=== PATIENT | female | born 1955 | race Caucasian/White ===

== ENCOUNTER → 2020-04-01 | Emergency (ER) | payer OTHER ==
[~2020-04-01] VITALS: Ht 162.6 cm; Wt 68.0 kg
[~2020-04-01] MED LIST: ALCO1PAD XX; AMLO5TAB15 PO; INSU100I4 SC; INSU31MI32 XX; LOSA25TA38 PO; PRAV20TA3 PO; SITA100T7 PO; TRAZ-184 PO
[2020-04-01 23:37] VITALS: BP 162/87
== END | disposition home or self-care (01) ==
LOC: ER 19:29
DX: H60.92 Unspecified otitis externa, left ear (principal); H66.92 Otitis media, unspecified, left ear; F41.9 Anxiety disorder, unspecified

== ENCOUNTER 2023-12-06 00:22 | Inpatient (IN) | payer OTHER ==
[~2023-12-06] VITALS: Ht 175.3 cm; Wt 68.4 kg
[2023-12-06] VITALS (8 sets, daily range): BP systolic 90–125; BP diastolic 52–75; PULSE 68–149; RESP 12–18; TEMP 97.3–98.7; O2SAT 93–98
[~2023-12-06 00:22] MED LIST changes: +AMLO1TAB22 PO; -AMLO5TAB15 PO; +LOSA25TA15 PO; -LOSA25TA38 PO
[2023-12-06] MEDS ORDERED: ONDANSETRON HCL 4 MG/2 ML VIAL IV PRN (03:00)
[2023-12-06] MEDS ORDERED: ACETAMINOPHEN 325 MG TAB PO PRN (03:00)
[2023-12-06] MEDS ORDERED: MELATONIN 5 MG TAB PO PRN (03:00)
[2023-12-06] MEDS ORDERED: DEXTROSE (50%) 50ML SYRG IV PRN (03:00)
[2023-12-06] MEDS ORDERED: hydrALAZINE HCL 10 MG TAB PO PRN (03:00)
[2023-12-06] MEDS: SODIUM CHLORIDE 0.9% 1,000 ML IV ONE (04:21)
[2023-12-06 05:55] LABS: Basophils # (auto) 0 10 ^3/uL (0-0.2); Basophils % (auto) 0.5 % (0.0-2.0); Eosinophils # (auto) 0.1 10 ^3/uL (0-0.8); Eosinophils % (auto) 2.5 % (0.0-7.0); Hematocrit 35.1 % (36.0-46.0); Lymphocytes # (auto) 1.3 10 ^3/uL (0.4-5.4); Lymphocytes % (auto) 27.3 % (10.0-50.0); Mean Corpuscular Hemoglobin 27.6 pg (28.0-32.0); Mean Corpuscular Hgb Conc. 34.4 g/dL (32.0-36.0); Mean Corpuscular Volume 80.4 fL (80.0-100.0); Monocytes # (auto) 0.5 10 ^3/uL (0-1.3); Monocytes % (auto) 10.2 % (0.0-12.0); Neutrophils # (auto) 2.9 10 ^3/uL (1.6-8.6); Neutrophils % (auto) 59.5 % (37.0-80.0); Nucleated Red Blood Cells % 0.1 %; Red Blood Cells 4.36 10^6/uL (4.0-5.20); Red Cell Distribution Width 13.6 % (11.8-14.3); White Blood Cell 4.8 10^3/uL (4.4-10.8)
[2023-12-06 06:05] LABS: Anion Gap 5 (5-15); Carbon Dioxide 29 mmol/L (20-30); Chloride 99 mmol/L (98-107); Potassium 3.2 mmol/L (3.5-5.1); Sodium 133 mmol/L (136-145)
[2023-12-06 06:06] LABS: Calcium 9.5 mg/dL (8.7-10.4)
[2023-12-06 06:11] LABS: BUN/Creatinine Ratio 28.6 (10.0-20.0); Blood Urea Nitrogen 32 mg/dL (9-23); Glucose 381 mg/dL (74-106)
[2023-12-06] MEDS: InsuLIN REG 1unit/0.01ml Soln (100units/ml) SC SCH ×2 (06:19→21:17)
[2023-12-06] MEDS: ACCU-CHEK COMFORT CURVE STRIP VI SCH (06:20)
[2023-12-06] MEDS: PANTOPRAZOLE 40 MG/10 ML VIAL INJ IV SCH (10:05)
[2023-12-06] MEDS: HEPARIN SODIUM (PORCINE) 5000 UNITS/ML 1ML VIAL SC SCH (10:08)
[2023-12-06] MEDS: LORazepam 0.5 MG TAB PO PRN (21:18)
[2023-12-06] MEDS: INSULIN LANTUS (GLARGINE) 1 /0.01ml (100units/ml) SC SCH (21:31)
[2023-12-06] MEDS ORDERED: TRAZ-228 PO (23:44)
[2023-12-06] MEDS ORDERED: LORA-1121 GT (23:45)
[2023-12-06] MEDS: traZODone HCL 50 MG TAB PO SCH (23:48)
[2023-12-07] VITALS (7 sets, daily range): BP systolic 121–160; BP diastolic 67–79; PULSE 60–108; RESP 16–20; TEMP 98–98.7; O2SAT 90–95
[2023-12-07 07:26] LABS: Anion Gap 5 (5-15); Carbon Dioxide 28 mmol/L (20-30); Chloride 103 mmol/L (98-107); Potassium 3.1 mmol/L (3.5-5.1); Sodium 136 mmol/L (136-145)
[2023-12-07 07:32] LABS: BUN/Creatinine Ratio 26.3 (10.0-20.0); Blood Urea Nitrogen 25 mg/dL (9-23); Glucose 300 mg/dL (74-106)
[2023-12-07] MEDS: POTASSIUM CHL 20MEQ/100ML 100 ML IV SCH (11:17)
[2023-12-07] MEDS: HYDROcodone-ACET 5/325MG TAB PO PRN (13:26)
[2023-12-07] MEDS: POTASSIUM EFFERVESENT TAB 25 MEQ PO ONE (18:26)
[2023-12-08 05:00] VITALS: BP 113/62; PULSE 72; RESP 16; TEMP 97.5; O2SAT 96
[2023-12-08 08:00] VITALS: PULSE 69
[2023-12-08 09:36] LABS: Urine Bacteria NONE SEEN /hpf (None Seen); Urine Blood Negative /uL (Negative); Urine Budding Yeast OCCASIONAL /hpf (None Seen); Urine Clarity Clear (Clear); Urine Color Colorless (Yellow); Urine Protein, UAD Negative (Negative); Urine Specific Gravity 1.012 (1.001-1.035); Urine Urobilinogen Normal (Negative); Urine WBC 5 /hpf (0 - 5); Urine pH 6.5 (5.0-8.0)
[2023-12-08 09:39] LABS: Protein, Urine 16.2 mg/dL (0.0-11.9)
[2023-12-08 09:42] LABS: Creatinine, Urine 69.26 mg/dL (30.0-125.0)
[2023-12-08 12:53] VITALS: BP 103/73; PULSE 78; RESP 18; TEMP 97.8; O2SAT 94
[2023-12-08 17:35] VITALS: TEMP 36.6
[2023-12-08 17:54] VITALS: BP 127/75; PULSE 99; RESP 17; TEMP 98.1; O2SAT 98
== END 2023-12-08 21:03 | disposition home or self-care (01) | DRG 638 ==
LOC: TELE-CENTR 03:50
PROVIDERS: ADMIT Internal Medicine; ATTEND Internal Medicine
DX: E11.65 Type 2 diabetes mellitus with hyperglycemia (principal); N17.9 Acute kidney failure, unspecified; E86.9 Volume depletion, unspecified; I10 Essential (primary) hypertension; E78.5 Hyperlipidemia, unspecified; F32.A Depression, unspecified; E87.6 Hypokalemia; F41.0 Panic disorder [episodic paroxysmal anxiety]; K21.9 Gastro-esophageal reflux disease without esophagitis; I25.10 Atherosclerotic heart disease of native coronary artery without angina pectoris; R79.89 Other specified abnormal findings of blood chemistry; Z79.84 Long term (current) use of oral hypoglycemic drugs; Z79.4 Long term (current) use of insulin; Z87.891 Personal history of nicotine dependence; Z83.3 Family history of diabetes mellitus; Z82.49 Family history of ischemic heart disease and other diseases of the circulatory system
CPT/HCPCS: 36415; 76775; 80048; 81001; 82570; 82962; 83036; 84156; 85025; 97163; C9113; G0378; J1815; J3480

== ENCOUNTER 2024-02-03 14:19 | Emergency (ER) | payer OTHER ==
[~2024-02-03] VITALS: Ht 162.6 cm; Wt 63.6 kg
[~2024-02-03 14:19] MED LIST changes: +LORA-1121 GT; +LOSA-533 PO; -LOSA25TA15 PO; +TRAZ-228 PO
[2024-02-03 14:22] VITALS: BP 148/83; RESP 18; O2SAT 99
[2024-02-03 15:04] LABS: Basophils # (auto) 0 10 ^3/uL (0-0.2); Basophils % (auto) 0.5 % (0.0-2.0); Eosinophils # (auto) 0.1 10 ^3/uL (0-0.8); Eosinophils % (auto) 1.6 % (0.0-7.0); Hematocrit 37.9 % (36.0-46.0); Hemoglobin 12.9 g/dL (12.2-16.2); Lymphocytes # (auto) 1.2 10 ^3/uL (0.4-5.4); Lymphocytes % (auto) 19.6 % (10.0-50.0); Mean Corpuscular Hemoglobin 27.9 pg (28.0-32.0); Mean Corpuscular Hgb Conc. 33.9 g/dL (32.0-36.0); Mean Corpuscular Volume 82.2 fL (80.0-100.0); Monocytes # (auto) 0.4 10 ^3/uL (0-1.3); Monocytes % (auto) 5.9 % (0.0-12.0); Neutrophils # (auto) 4.6 10 ^3/uL (1.6-8.6); Neutrophils % (auto) 72.4 % (37.0-80.0); Red Blood Cells 4.61 10^6/uL (4.0-5.20); White Blood Cell 6.3 10^3/uL (4.4-10.8)
[2024-02-03 15:21] LABS: Alanine Aminotransferase 18 U/L (7-40); Albumin 4.3 g/dL (3.2-4.8); Alkaline Phosphatase 76 U/L (46-116); Anion Gap 8 (5-15); Aspartate Aminotransferase 13 U/L (13-40); Bilirubin, Total 0.3 mg/dL (0.2-1.0); Blood Urea Nitrogen 35 mg/dL (9-23); Calcium 10.3 mg/dL (8.5-10.1); Carbon Dioxide 28 mmol/L (20-30); Chloride 102 mmol/L (98-107); Glucose 246 mg/dL (74-106); Potassium 4.3 mmol/L (3.5-5.1); Sodium 138 mmol/L (136-145); Total Protein 6.4 g/dL (5.7-8.2)
[2024-02-03 15:27] VITALS: PULSE 110
[2024-02-03] MEDS: ASPirin 325 MG TAB PO ONE (20:02)
[2024-02-03] MEDS: NITROGLYCERIN 0.4 MG SL TAB SL ONE (20:03)
== END 2024-02-03 20:03 | disposition home or self-care (01) ==
LOC: ER 14:19
DX: I10 Essential (primary) hypertension (principal); E11.65 Type 2 diabetes mellitus with hyperglycemia; R07.89 Other chest pain; E78.5 Hyperlipidemia, unspecified; F41.9 Anxiety disorder, unspecified; F32.9 Major depressive disorder, single episode, unspecified; Z79.899 Other long term (current) drug therapy
CPT/HCPCS: 36415; 71045; 80053; 84484; 85025; 93005